=== PATIENT | male | born 1970 | race American Indian/Alaskan Native ===

== ENCOUNTER 2020-08-03 11:29 | Emergency (ER) | payer SELFPAY ==
[2020-08-03 11:38] VITALS: BP 121/73
--- NOTE | 2020-08-03 13:09 | XRay Report ---
LEFT FOOT 3 VIEW(S) INDICATION / CLINICAL INFORMATION: box fell onto left big toe COMPARISON: None available. FINDINGS: BONES / JOINT(S): No acute fracture or subluxation. 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 SOFT TISSUES: No significant abnormality. ADDITIONAL FINDINGS: None. Signer Name: Ab Morel MD Signed: 08/03/2020 1:04 PM Workstation Name: [id number]
--- NOTE | 2020-08-03 13:32 | Emergency Department Report ---
ED Lower Extremity HPI - General Chief Complaint: Extremity Injury, Lower Stated Complaint: GREAT TOE INJURY Time Seen by Provider: 08/03/20 12:33 Source: patient Mode of arrival: Ambulatory Limitations: No Limitations - History of Present Illness Initial Comments: Patient is a 49-year-old male presents emergency room with complaints of a left big toe injury that occurred earlier today. He states that he was at work and was moving a heavy box approximately 75 pounds and accidentally fell onto his left big toe. He states that he has some bruising to the left big toe. He denies ever injuring this toe foot or ankle in the past. He states he has been ambulatory. He denies any numbness or weakness. No past medical history. No allergies to medications. - Related Data Allergies Allergy/AdvReac Type Severity Reaction Status Date / Time No Known Allergies Allergy Unverified 05/01/20 12:55 ED Review of Systems ROS: Stated complaint: GREAT TOE INJURY Other details as noted in HPI Comment: All other systems reviewed and negative ED Past Medical Hx - Past Medical History Previous Medical History?: No - Surgical History Past Surgical History?: No - Social History Smoking Status: Current Every Day Smoker Substance Use Type: None ED Physical Exam - General Limitations: No Limitations General appearance: alert, in no apparent distress - Head Head exam: Present: atraumatic, normocephalic - Eye Eye exam: Present: normal appearance - ENT ENT exam: Present: mucous membranes moist - Extremities Exam Extremities exam: Present: other (ttp to the distal end of the left big toe, there is mild amount of ecchymosis just superior to the nail bed, no damage to the nail or nail bed, no abrasion or laceration, no ttp to the other toes, foot, or ankle, FROM of the left foot, ankle, toes, big toe, neurovascularly intact) - Neurological Exam Neurological exam: Present: alert, oriented X3 - Psychiatric Psychiatric exam: Present: normal affect, normal mood - Skin Skin exam: Present: warm, dry ED Course Vital Signs 08/03/20 11:34 Temperature 98.2 F Pulse Rate 82 Respiratory 20 Rate Blood Pressure 121/73 O2 Sat by Pulse 97 Oximetry ED Lower Extremity MDM - Radiology Data Radiology results: report reviewed LEFT FOOT 3 VIEW(S) INDICATION / CLINICAL INFORMATION: box fell onto left big toe COMPARISON: None available. FINDINGS: BONES / JOINT(S): No acute fracture or subluxation. 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 SOFT TISSUES: No significant abnormality. ADDITIONAL FINDINGS: None. Signer Name: Ab Morel MD Signed: 08/03/2020 1:04 PM Workstation Name: [id number] Transcribed By: TL Dictated By: Ab Morel MD Electronically Authenticated By: Ab Morel MD Signed Date/Time: 08/03/20 130 DD/ 130 TD/TT: - Medical Decision Making Patient is a 49-year-old male presents emergency room with complaints of a left big toe injury that occurred earlier today. He states that he was at work and was moving a heavy box approximately 75 pounds and accidentally fell onto his left big toe. He states that he has some bruising to the left big toe. He denies ever injuring this toe foot or ankle in the past. He states he has been ambulatory. He denies any numbness or weakness. No past medical history. No allergies to medications. vitals are normal. on exam: ttp to the distal end of the left big toe, there is mild amount of ecchymosis just superior to the nail bed, no damage to the nail or nail bed, no abrasion or laceration, no ttp to the other toes, foot, or ankle, FROM of the left foot, ankle, toes, big toe, neurovascularly intact. XR left foot: BONES / JOINT(S): No acute fracture or subluxation. 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 SOFT TISSUES: No significant abnormality. ADDITIONAL FINDINGS: None. Discussed all results with patient and answered questions. advised pt May alternate Tylenol or ibuprofen as needed for discomfort. May ice for 15 min at a time, rest, elevate the leg. Follow-up with your primary care doctor. Return to emergency room for any new or worsening symptoms. - Differential Diagnosis strain, sprain, fx, dislocation, DJD, arthritis, contusion Critical care attestation.: If time is entered above; I have spent that time in minutes in the direct care of this critically ill patient, excluding procedure time. ED Disposition Clinical Impression: Injury of left great toe Qualifiers: Encounter type: initial encounter Qualified Code(s): S99.922A - Unspecified injury of left foot, initial encounter Disposition: DC-01 TO HOME OR SELFCARE Is pt being admited?: No Does the pt Need Aspirin: No Condition: Stable Instructions: Osteoarthritis (ED), Foot Contusion (ED) Additional Instructions: May alternate Tylenol or ibuprofen as needed for discomfort. May ice for 15 min at a time, rest, elevate the leg. Follow-up with your primary care doctor. Return to emergency room for any new or worsening symptoms. Referrals: your, primary care doctor [Other] - 2-3 Days Forms: Work/School Release Form(ED) Time of Disposition: 13:31 Print Language: BULGARIAN
== END 2020-08-03 14:02 | disposition home or self-care (01) ==
LOC: ED 11:29
DX: S99.922A Unspecified injury of left foot, initial encounter (principal); F17.200 Nicotine dependence, unspecified, uncomplicated; X50.0XXA Overexertion from strenuous movement or load, initial encounter; Y93.89 Activity, other specified; Y92.89 Other specified places as the place of occurrence of the external cause; Y99.0 Civilian activity done for income or pay

== ENCOUNTER 2021-09-09 10:47 | Emergency (ER) | payer SELFPAY ==
[2021-09-09 10:53] VITALS: BP 130/76
[2021-09-09] MEDS ORDERED: IBUPROFEN 800 MG TAB PO STA (11:04)
[2021-09-09] MEDS ORDERED: ACETAMINOPHEN 500 MG TAB PO STA (11:04)
--- NOTE | 2021-09-09 11:07 | Emergency Department Report ---
ED General Adult HPI - General Chief complaint: Extremity Injury, Lower Stated complaint: LEFT KNEE PAIN Time Seen by Provider: 09/09/21 10:56 Source: patient Mode of arrival: Wheelchair Limitations: No Limitations - History of Present Illness Initial comments: 50-year-old -[place] male patient without past medical history presents with complaints of left knee pain and swelling x1 month worsening over the past 2 weeks. He denies any injury, fever/chills/sweats, urinary symptoms, or difficulty moving the knee. Patient states the pain began a month ago while walking and he suddenly felt a pop. He has not tried any OTC medications for his symptoms. He rates his current pain as a 7/10 in severity and states it worsens with ambulation and extension of the knee. He denies any numbness/tingling or weakness in the leg. Severity scale (0 -10): 8 - Related Data Previous Rx's Medication Instructions Recorded Last Taken Type Naproxen [Naprosyn TAB] 500 mg PO BID PRN #20 tablet 09/09/21 Unknown Rx Allergies Allergy/AdvReac Type Severity Reaction Status Date / Time No Known Allergies Allergy Verified 09/09/21 10:49 ED Review of Systems ROS: Stated complaint: LEFT KNEE PAIN Other details as noted in HPI Constitutional: denies: chills, diaphoresis, fever, malaise, weakness Genitourinary: denies: frequency, hematuria, discharge Musculoskeletal: joint swelling, arthralgia Skin: denies: rash, change in color Neurological: denies: numbness, paresthesias ED Past Medical Hx - Past Medical History Previous Medical History?: No - Surgical History Past Surgical History?: No - Social History Smoking Status: Current Every Day Smoker Substance Use Type: None - Medications Home Medications: Home Medications Medication Instructions Recorded Confirmed Last Taken Type Naproxen [Naprosyn TAB] 500 mg PO BID PRN #20 tablet 09/09/21 Unknown Rx ED Physical Exam - General Limitations: No Limitations General appearance: alert, in no apparent distress, obese (morbid) - Head Head exam: Present: atraumatic, normocephalic - Eye Eye exam: Present: normal appearance. Absent: scleral icterus - Respiratory Respiratory exam: Absent: respiratory distress - Cardiovascular Cardiovascular Exam: Present: regular rate - Extremities Exam Extremities exam: Absent: calf tenderness (No swelling or tenderness noted to lower extremities bilaterally) - Expanded Lower Extremity Exam Left Knee exam: Present: full ROM, tenderness (Noted to anterior medial joint line), effusion (Mild anterior medial). Absent: abrasion, laceration, ecchymosis, deformity, crepidus Lower Leg exam: Present: normal inspection Neuro vascular tendon exam: Present: no vascular compromise Gait: Positive: antalgic - Neurological Exam Neurological exam: Present: alert, oriented X3 - Psychiatric Psychiatric exam: Present: normal affect, normal mood - Skin Skin exam: Present: warm, dry, intact, normal color. Absent: rash ED Course Vital Signs 09/09/21 09/09/21 10:51 11:12 Temperature 98.9 F Pulse Rate 87 Respiratory 20 16 Rate Blood Pressure 130/76 [Right] O2 Sat by Pulse 95 Oximetry ED Medical Decision Making - Radiology Data Radiology results: report reviewed XR knee 3V LT INDICATION / CLINICAL INFORMATION: pain and swelling, medial/anterior. COMPARISON: None available. FINDINGS: BONES/JOINT(S): No acute fracture or subluxation. 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 SOFT TISSUES: No significant abnormality. ADDITIONAL FINDINGS: None. - Medical Decision Making 50-year-old -[place] male patient without past medical history presents with complaints of left knee pain and swelling x1 month worsening over the past 2 weeks. He denies any injury, fever/chills/sweats, urinary symptoms, or diffic ulty moving the knee. Patient states the pain began a month ago while walking and he suddenly felt a pop. He has not tried any OTC medications for his symptoms. He rates his current pain as a 7/10 in severity and states it worsens with ambulation and extension of the knee. He denies any numbness/tingling or weakness in the leg. X-rays negative for any acute abnormalities and shows arthritic changes. Recommend follow-up with orthopedics for further evaluation and treatment. Conservative treatment for now with rice method and meds recommended. Also advised weight loss. Discussed presumptive diagnosis, care plan, and signs and symptoms that should prompt immediate return to the ED with patient verbalized understanding. Critical care attestation.: If time is entered above; I have spent that time in minutes in the direct care of this critically ill patient, excluding procedure time. ED Disposition Clinical Impression: Left knee pain, Overweight or obesity Disposition: HOME / SELF CARE / HOMELESS Is pt being admited?: No Condition: Stable Instructions: Acute Knee Pain, Adult, Obesity, Adult, [id number] Prescriptions: Naproxen [Naprosyn TAB] 500 mg PO BID PRN #20 tablet PRN Reason: pain Referrals: [facility] [Provider Group] - 3-5 Days Forms: Work/School Release Form(ED)
--- NOTE | 2021-09-09 11:42 | XRay Report ---
XR knee 3V LT INDICATION / CLINICAL INFORMATION: pain and swelling, medial/anterior. COMPARISON: None available. FINDINGS: BONES/JOINT(S): No acute fracture or subluxation. Mild tricompartmental osteoarthritis with a joint e ffusion. SOFT TISSUES: No significant abnormality. ADDITIONAL FINDINGS: None. Signer Name: Jorje Johnson MD Signed: 09/09/2021 11:38 AM Workstation Name: [id number]
== END 2021-09-09 12:53 | disposition home or self-care (01) ==
LOC: ED 10:47
DX: M25.562 Pain in left knee (principal); E66.9 Obesity, unspecified; F17.200 Nicotine dependence, unspecified, uncomplicated
CPT/HCPCS: 99283